=== PATIENT | female | born 1990 | race Two or more races ===

== ENCOUNTER 2022-01-18 10:44 | Emergency (ER) | payer SELFPAY ==
[~2022-01-18] VITALS: Ht 152.4 cm; Wt 60.0 kg
[2022-01-18 10:54] VITALS: BP 156/80
[2022-01-18] MEDS ORDERED: ACETAMINOPHEN 500 MG TAB PO ONE (11:15)
[2022-01-18] MEDS ORDERED: SODIUM CHLORIDE 0.9% 1,000 ML IV ONE (11:15)
[2022-01-18] MEDS ORDERED: AZIT250T9 PO (12:22)
[2022-01-18] MEDS ORDERED: METH4PAK PO (12:22)
[2022-01-18] MEDS ORDERED: ALBUAER3 IN (12:23)
[2022-01-18] MEDS ORDERED: DEXT1SYP9 PO (12:24)
[2022-01-18] MEDS ORDERED: DexAMETHasone 4 MG TAB PO ONE (12:30)
[2022-01-18] MEDS ORDERED: ALBUTEROL SULF 2.5 MG/0.5ML(0.5%) NEB SOLN NEB ONE (12:30)
[2022-01-18] MEDS ORDERED: BUDESONIDE (INHALATION) 0.5 MG/2 ML NEB NEB ONE (12:30)
[2022-01-18] MEDS ORDERED: LEVALBUTEROL HCL 1.25 MG/3 ML NEB NEB SCH (18:00)
== END 2022-01-18 15:10 | disposition home or self-care (01) ==
LOC: ER 10:44
DX: J45.909 Unspecified asthma, uncomplicated (principal); J20.9 Acute bronchitis, unspecified; E11.9 Type 2 diabetes mellitus without complications; Z20.822 Contact with and (suspected) exposure to COVID-19
CPT/HCPCS: 36415; 82962; 87426; 87804; 93005; 94640; 99284; J8540

== ENCOUNTER 2024-04-20 03:30 | Inpatient (IN) | payer OTHER ==
[~2024-04-20] VITALS: Ht 152.4 cm; Wt 67.6 kg
[~2024-04-20 03:30] MED LIST: ALBUAER3 IN; AZIT-43 PO; DEXT1SYP9 PO; METH4PAK PO
[2024-04-20 04:31] LABS: COVID19 ANTIGEN SOFIA FIA NEGATIVE (NEGATIVE); Rapid Influenza A Negative (Negative)
[2024-04-20 04:32] LABS: Rapid Influenza B Positive (Negative)
--- NOTE | 2024-04-20 04:36 | ED.PDOC ---
SOB-HPI HPI Comments This is a 35-year-old diabetic patient chief complaint flu-like symptoms x2 days. Patient complaining of fevers, vomiting, shortness of breath. Taking [id number] medications with little relief. Fingerstick in triage is 431. Diarrhea, chest pain, difficulty breathing, recent travel does note recent ill contacts. Chief Complaint: Flu like Time Seen by MD: 03:43 Primary Care Provider: UNKNOWN Reviewed notes: Nurses Notes, Medications, Allergies Information Source: Patient Mode of Arrival: Ambulatory Past Medical History PAST MEDICAL HISTORY: DM Surgical History: Denies all surgeries [employer]IC History: Denies all SHEET MET[employer] MECH[employer]IC Hx Family History Family History: Reviewed,noncontributory to illness Social History Smoker: Non-Smoker Alcohol: Denies ETOH Use Drugs: Denies Drug Use Lives In: Home Constitutional: reports: fever; denies: chills, diaphoresis, fatigue, malaise, sweats, weakness, others EENTM: reports: nasal discharge; denies: blurred vision, double vision, ear bleeding, ear discharge, ear drainage, ear pain, ear ringing, eye pain, eye red ness, hearing loss, mouth pain, mouth swelling, nose bleeding, nose congestion, nose pain, photophobia, tearing, throat pain, throat swelling, voice changes, others Respiratory: reports: cough, shortness of breath; denies: hemoptysis, orthopnea, SOB at rest, SOB with excertion, stridor, wheezing, others Cardiovascular: denies: chest pain, dizzy spells, diaphoresis, Dyspnea on exertion, edema, irregular heart beat, left arm pain, lightheadedness, palpitations, PND, syncope, others Gastrointestinal: reports: nausea, vomiting; denies: abdomen distended, abdominal pain, blood streaked bowels, constipated, diarrhea, dysphagia, difficulty swallowing, hematemesis, melena, poor appetite, poor fluid intake, rectal bleeding, rectal pain, others Genitourinary: denies: abnormal vagina bleeding, burning, dyspareunia, dysuria, flank pain, frequency, hematuria, incontinence, pain, , vagina discharge, urgency, others Neurological: denies: dizziness, fainting, headache, left sided numbness, left sided weakness, numbness, paresthesia, pre-existing deficit, right sided numbness, right sided weakness, seizure, speech problems, tingling, tremors, weakness, others Musculoskeletal: denies: back pain, gout, joint pain, joint swelling, muscle pain, muscle stiffness, neck pain, others Integumetry: denies: bruises, change in color, change in hair/nails, dryness, laceration, lesions, lumps, rash, wounds, others Allergic/Immunocompromised: denies: Difficulty Healing, Frequent Infections, Hives, Itching, others Hematologic/Lymphatic: denies: anemia, blood clots, easy bleeding, easy bruising, swollen glands, others Endocrine: denies: excessive hunger, excessive sweating, excessive thirst, excessive urination, flushing, intolerance to cold, intolerance to heat, unexplained weight gain, unexplained weight loss, others Psychiatric: denies: anxiety, bipolar disorder, depression, hopeless, panic disorder, schizophrenia, sleepless, suicidal, others Physical Exam General Appearance: No Apparent Distress, Normal HEENT: Pharyngeal Erythema, TMs Normal Neck: Full Range of Motion, Non-Tender Respiratory: Chest Non-Tender, Lungs Clear, No Accessory Muscle Use, No Respiratory Distress, Normal Breath Sounds Cardiovascular: No Edema, No JVD, No Murmur, No Gallop, Normal Peripheral Pulses, Regular Rate/Rhythm Breast Exam: Deferred Gastrointestinal: No Organomegaly, Non Tender, No Pulsatile Mass, Normal Bowel Sounds, Soft Genitalia: Deferred Pelvic: Deferred Rectal: Deferred Extremities: Normal capillary refill, Normal inspection, Normal range of motion, Non-tender, No pedal edema Musculoskeletal : Apperance: Normal Neurologic: Alert, wire preparation machine tender II-XII nml as Tested, No Motor Deficits, Normal Affect, Normal Mood, No Sensory Deficits Cerebellar Function: Normal Reflexes: Normal Skin: Dry, Normal Color, Warm Lymphatic: No Adenopathy Was a procedure done? Was a procedure done?: No Differential Dx Differential Diagnosis: Bronchitis, Pneumonia X-Ray, Labs, Meds, VS Vital Signs Date Time Temp Pulse Resp B/P (MAP) Pulse Ox O2 Delivery O2 Flow Rate FiO2 04/20/24 08:45 98.3 118 22 135/86 (102) 97 98.3 04/20/24 08:40 118 22 97 Room Air* 0 21 04/20/24 08:35 131 97 Room Air* 0 21 04/20/24 08:35 98.4 131 16 119/76 (90) 97 98.4 04/20/24 04:29 142 16 96 Room Air 04/20/24 04:29 97.7 142 16 141/102 (115) 96 97.7 04/20/24 03:44 97.7 42 16 141/102 (115) 96 Lab Test 04/20/24 10:00 04/20/24 09:39 04/20/24 08:41 04/20/24 08:10 Range/Units Urine Color Light-yellow Yellow Urine Clarity Clear Clear Urine pH 5.0 5.0-9.0 Urine Specific [place] 1.025 1.001-1.035 Urine Protein Trace H Negative Urine Ketones 4+ H Negative Urine Blood Negative Negative /uL Urine Nitrite Negative Negative Urine Bilirubin Negative Negative Urine Urobilinogen Normal Negative mg/dL Urine Leukocyte Esterase Negative Negative /uL Urine RBC 1 0 - 4 /hpf Urine Microscopic WBC 1 0-5 /HPF Urine Squamous Epithelial Cells Few <5 /hpf Urine Bacteria Few H None Seen /hpf Urine Hyaline Casts Mod 0 - 2 /lpf Urine Mucus Few None Seen Urine Yeast (Budding) Occasional None Seen /hpf Urine Glucose 4+ H Normal mg/dL Lactic Acid Level 1.6 0.4-2.0 mmol/L POC Glucose 277 H 70-106 mg/dl Blood Gas Specimen Type Venous Blood Gas Sample Site Vbg - n/a Blood Gas Patient Temperature 37.0 Arterial Blood Date Drawn Kang Test N/a Venous Blood pH 7.218 L 7.320-7.430 Venous Blood pCO2 at Patient Temp 26.4 L 38.0-54.0 mmHg Venous Blood pO2 at Patient Temp < 36.5 23.0-48.0 mmHg Venous Blood HCO3 10.5 L 22.0-29.0 mmol/L Venous Blood Base Excess -15.5 L -2.0-3.0 mmol/L Blood Gas Modality Room air FiO2 % 21.0 Test 04/20/24 07:51 04/20/24 05:55 04/20/24 04:59 04/20/24 03:57 Range/Units Sodium Level 132 L 129 L 136-145 mmol/L Potassium Level 4.2 5.5 H 3.5-5.1 mmol/L Chloride Level 106 99 98-107 mmol/L Carbon Dioxide Level 11 L 10 L 20-31 mmol/L Anion Gap 15 20 H 5-15 Blood Urea Nitrogen 13 15 9-23 mg/dL Creatinine 1.06 H 1.49 H 0.550-1.02 mg/dL Glomerular Filtration Rate Calc 69 46 >90 mL/min BUN/Creatinine Ratio 12.3 10.1 10.0-20.0 Serum Glucose 323 H 459 *H 74-106 mg/dL Serum Osmolality 299 H 278-298 mOsm/kg Calcium Level 8.6 L 9.7 8.7-10.4 mg/dL Beta-Hydroxybutyric Acid 3.465 H < 0.4 mmol/L POC Glucose 490 *H 510 *H 70-106 mg/dl White Blood Count 13.7 H 4.4-10.8 10^3/uL Red Blood Count 5.98 H 4.0-5.20 10^6/uL Hemoglobin 17.9 H 12.2-16.2 g/dL Hematocrit 55.5 H 36.0-46.0 % Mean Corpuscular Volume 92.8 80.0-100.0 fL Mean Corpuscular Hemoglobin 30.0 28.0-32.0 pg Mean Corpuscular Hemoglobin Concent 32.3 32.0-36.0 g/dL Red Cell Distribution Width 13.8 11.8-14.3 % Platelet Count 367 140-450 10^3/uL Mean Platelet Volume 9.1 6.9-10.8 fL Neutrophils (%) (Auto) 66.3 37.0-80.0 % Lymphocytes (%) (Auto) 25.7 10.0-50.0 % Monocytes (%) (Auto) 7.5 0.0-12.0 % Eosinophils (%) (Auto) 0.3 0.0-7.0 % Basophils (%) (Auto) 0.2 0.0-2.0 % Neutrophils # (Auto) 9.1 H 1.6-8.6 10 ^3/uL Lymphocytes # (Auto) 3.5 0.4-5.4 10 ^3/uL Monocytes # (Auto) 1.0 0-1.3 10 ^3/uL Eosinophils # (Auto) 0 0-0.8 10 ^3/uL Basophils # (Auto) 0 0-0.2 10 ^3/uL Nucleated Red Blood Cells 0.1 % Phosphorus Level 5.4 H 2.4-5.1 mg/dL Magnesium Level 2.4 1.6-2.6 mg/dL Total Bilirubin 0.2 0.2-1.0 mg/dL Aspartate Amino Transferase (AST) 53 H 13-40 U/L Alanine Aminotransferase (ALT) 36 7-40 U/L Alkaline Phosphatase 107 46-116 U/L Total Protein 8.7 H 5.7-8.2 g/dL Albumin 5.4 H 3.2-4.8 g/dL Test 04/20/24 03:52 Range/Units Influenza Type A Antigen Negative Negative Influenza Type B Antigen Positive Negative SARS-CoV-2 Antigen (Rapid) Negative NEGATIVE X-Ray, Labs, Meds, VS Comment Influenza swab POSITIVE B COVID-19 negative PENDING CBC AND CMP CONSIDER DKA TX: Patient's blood sugar fingerstick 510. Normal saline 1000 mL fluid bolus. Insulin 5 units subQ. 0537-FINGER GLUCOSE 490 AFTER 5 UNITS OF INSULIN SUBQ AND 1 L BOLUS. PATIENT GIVEN 5 MORE UNITS OF INSULIN R 2ND NORMAL SALINE BOLUS 1# NORMAL SALINE 1000 ML BOLUS #2 NORMAL SALINE 1000 ML BOLUS Time of 1ST Reevaluation: 07:45 Reevaluation 1ST: Improved Patient Education/Counseling: Diagnosis, Treatment, Prognosis, Need For Follow Up Family Education/Counseling: No Family Present Departure 1 Departure Time of Disposition: 07:45 (Patient presented in DKA. We will admit patient for insulin drip and further workup.) Impression: Primary Impression: DKA, type 2, not at goal Additional Impressions: Influenza B Diabetes type 2, uncontrolled Qualified Codes: E11.65 - Type 2 diabetes mellitus with hyperglycemia Disposition: ADMITTED INPATIENT Admit to: ICU Condition: Guarded e-Prescriptions Methylprednisolone (Medrol Dosepak) 4 Mg [place] 4 MG PO UD for 6 Days, #21 TAB UAD Prov: IWONA HACKETT MD 04/23/24 Azithromycin (Azithromycin) 250 Mg Tab 250 MG PO DAILY for 5 Days, #6 TAB Prov: IWONA HACKETT MD 04/23/24 Metformin Hydrochloride (Metformin Hcl) 500 Mg Tab 0.5 TAB PO BID for 10 Days, #10 TAB Take a half tab twice daily with meals Prov: HASMUKH VILLA 04/20/24 Oseltamivir Phosphate (Tamiflu) 75 Mg Cap 1 CAP PO BID for 5 Days, #10 CAP Prov: HASMUKH VILLA 04/20/24 Discharged With: Self Critical Care Note Critical Care Time?: Yes Critical care comment: DKA Authorized and Performed by: Robert Rodrigues MD Total critical care time: Approximately 34 minutes Due to a high probability of clinically significant, life threatening deterioration, the patient required my highest level of preparedness to intervene emergently and I personally spent this critical care time directly and personally managing the patient. This critical care time included obtaining a history; examining the patient; pulse oximetry; ordering and review of studies; arranging urgent treatment with development of a management plan; evaluation of patient's response to treatment; frequent reassessment; and, discussions with other providers. This critical care time was performed to assess and manage the high probability of imminent, life-threatening deterioration that could result in multi-organ failure. It was exclusive of separately billable procedures and treating other patients and teaching time. Please see my other sections and the rest of the note for further information on patient assessment and treatment. Stability Stability form required: No Heart Score Heart Score: Heart Score Response (Comments) Value History N/A 0 EKG N/A 0 Age N/A 0 Risk Factors N/A 0 Troponin N/A 0 Total 0 HASMUKH VILLAP Apr 20, 2024 04:36 ROBERT RODRIGUES MD Apr 20, 2024 07:46
[2024-04-20] MEDS: SODIUM CHLORIDE 0.9% 1,000 ML IV ONE ×2 (04:49→06:05)
[2024-04-20] MEDS: InsuLIN REG 1unit/0.01ml Soln (100units/ml) SC ONE ×2 (05:06→06:10)
[2024-04-20] MEDS ORDERED: OSEL75CA5 PO (05:31)
[2024-04-20] MEDS ORDERED: METF-370 PO (05:31)
[2024-04-20 06:11] LABS: Basophils # (auto) 0 10 ^3/uL (0-0.2); Basophils % (auto) 0.2 % (0.0-2.0); Eosinophils # (auto) 0 10 ^3/uL (0-0.8); Neutrophils # (auto) 9.1 10 ^3/uL (1.6-8.6); Nucleated Red Blood Cells % 0.1 %
[2024-04-20 06:14] LABS: Eosinophils % (auto) 0.3 % (0.0-7.0); Hematocrit 55.5 % (36.0-46.0); Hemoglobin 17.9 g/dL (12.2-16.2); Lymphocytes # (auto) 3.5 10 ^3/uL (0.4-5.4); Lymphocytes % (auto) 25.7 % (10.0-50.0); Mean Corpuscular Hgb Conc. 32.3 g/dL (32.0-36.0); Mean Corpuscular Volume 92.8 fL (80.0-100.0); Monocytes % (auto) 7.5 % (0.0-12.0); Neutrophils % (auto) 66.3 % (37.0-80.0); Platelet Count (auto) 367 10^3/uL (140-450); Red Blood Cells 5.98 10^6/uL (4.0-5.20); Red Cell Distribution Width 13.8 % (11.8-14.3); White Blood Cell 13.7 10^3/uL (4.4-10.8)
[2024-04-20 06:42] LABS: Alkaline Phosphatase 107 U/L (46-116); Anion Gap 20 (5-15); Calcium 9.7 mg/dL (8.7-10.4); Chloride 99 mmol/L (98-107)
[2024-04-20 06:46] LABS: BUN/Creatinine Ratio 10.1 (10.0-20.0)
[2024-04-20 06:50] LABS: Carbon Dioxide 10 mmol/L (20-31); Potassium 5.5 mmol/L (3.5-5.1); Sodium 129 mmol/L (136-145)
[2024-04-20 06:51] LABS: Alanine Aminotransferase 36 U/L (7-40); Albumin 5.4 g/dL (3.2-4.8); Aspartate Aminotransferase 53 U/L (13-40); Bilirubin, Total 0.2 mg/dL (0.2-1.0); Blood Urea Nitrogen 15 mg/dL (9-23); Glucose 459 mg/dL (74-106); Total Protein 8.7 g/dL (5.7-8.2)
[2024-04-20] MEDS ORDERED: DEXTROSE (50%) 50ML SYRG IV PRN ×2 (07:15→23:15)
[2024-04-20] MEDS: ACCU-CHEK COMFORT CURVE STRIP VI SCH ×2 (07:32→23:47)
[2024-04-20 07:40] LABS: Magnesium 2.4 mg/dL (1.6-2.6)
[2024-04-20] MEDS: SODIUM CHLORIDE 0.9% 1,000 ML IV SCH ×2 (07:40→11:38)
[2024-04-20 07:44] LABS: Phosphorus 5.4 mg/dL (2.4-5.1)
[2024-04-20] MEDS: INSULIN LANTUS (GLARGINE) 1 /0.01ml (100units/ml) SC ONE (07:48)
[2024-04-20 08:33] LABS: Chloride 106 mmol/L (98-107); Potassium 4.2 mmol/L (3.5-5.1)
[2024-04-20 08:34] LABS: Anion Gap 15 (5-15)
[2024-04-20 08:35] VITALS: PULSE 131; O2SAT 97
[2024-04-20 08:40] VITALS: PULSE 118; RESP 22; O2SAT 97
[2024-04-20 08:40] LABS: BUN/Creatinine Ratio 12.3 (10.0-20.0); Blood Urea Nitrogen 13 mg/dL (9-23); Calcium 8.6 mg/dL (8.7-10.4); Carbon Dioxide 11 mmol/L (20-31); Glucose 323 mg/dL (74-106); Sodium 132 mmol/L (136-145)
[2024-04-20] MEDS: INSULIN DRIP 100 UNIT/100ML 100 ML IV SCH (08:46)
--- NOTE | 2024-04-20 09:00 | DVH ---
CHEST RADIOGRAPH Indication: cough Technique: Single frontal view of the chest was obtained Comparison: None FINDINGS: Lines and Tubes: None Lungs: No focal consolidation. Pleura: No effusion. No pneumothorax. Cardiomediastinal contours: Unremarkable Bones: No acute osseous abnormality. IMPRESSION: No acute cardiopulmonary disease.
[2024-04-20] MEDS ORDERED: MORPHINE SULFATE INJ 2 MG/ml SYRG IV PRN (10:15)
[2024-04-20] MEDS ORDERED: ACETAMINOPHEN 325 MG TAB PO PRN (10:15)
[2024-04-20] MEDS ORDERED: HYDROcodone-ACET 5/325MG TAB PO PRN (10:15)
[2024-04-20] MEDS ORDERED: NITROGLYCERIN 0.4 MG SL TAB SL PRN (10:15)
[2024-04-20] MEDS ORDERED: DOCUSATE SOD 100 MG CAP PO PRN (10:15)
[2024-04-20 10:35] LABS: Urine Bacteria FEW /hpf (None Seen); Urine Blood Negative /uL (Negative); Urine Budding Yeast OCCASIONAL /hpf (None Seen); Urine Clarity Clear (Clear); Urine Color Light-Yellow (Yellow); Urine Hyaline Cast MOD /lpf (0 - 2); Urine Mucus FEW (None Seen); Urine Protein, UAD TRACE (Negative); Urine Specific Gravity 1.025 (1.001-1.035); Urine Squamous Epithelial Cell FEW /hpf (<5); Urine Urobilinogen Normal (Negative); Urine WBC 1 /HPF (0-5)
--- NOTE | 2024-04-20 10:46 | DVHHP2 ---
History of Present Illness Reason for Visit: Flu like symptoms History of Present Illness Telma Blum is a 35-year-old female with past medical history of diabetes controlled by diet and exercise, who came into the hospital for flu like symptoms since last Saturday. Patient states she started feeling bad on Saturday, had a productive cough and was sent home from work. States she continued to decline and get worse over the next few days, becoming weaker and unable to eat any food. She came into the hospital due to increasing shortness of breath and weakness. Patient states she has not been able to eat since last Saturday. She says her blood sugars are usually less than 100 in the morning and that she did not know her sugars would increase due to illness and stress. Endocrine: Diabetes Past Surgical History: None Family History: None Smoke: No ALCOHOL: none Drugs: None Lives: with Family Domestic Violence: Neg Review of Systems Constitutional: Yes: Fever, Chills, Sweats, Malaise; No: Weakness, Other Eyes: No: Pain, Vision change, Conjunctivae inflammation, Eyelid inflammation, Other, Redness ENT: No: Ear pain, Ear discharge, Nose pain, Nose discharge, Nose congestion, Mouth pain, Mouth swelling, Throat pain, Throat swelling, Other Respiratory: Cough, Shortness of breath, SOB with excertion, Sputum; No: Dry, Wheezing, Hemoptysis, Pleuritic Pain, Wheezing, Other Cardiovascular: No: Chest Pain, Palpitations, Orthopnea, Paroxysmal Noc. Dyspnea, Edema, Lt Headedness, Other Gastrointestinal: No: Nausea, Vomiting, Abdominal Pain, Diarrhea, Constipation, Melena, Hematochezia, Other Genitourinary: No Dysuria, No Frequency, No Incontinence, No Hematuria, No Retention, No Other Musculoskeletal: No: other, neck pain, shoulder pain, arm pain, back pain, hand pain, leg pain, foot pain Skin: No: Rash, Lesions, Jaundice, Bruising, Other Neurological: No: Weakness, Numbness, Incoordination, Change in speech, Confusion, Seizures, Other Allergies: Coded Allergies: NO KNOWN ALLERGIES (Unverified , 01/18/22) Medications Current Medications Medications Dose Ordered Sig/Demar Route Start Time Stop Time Status Last Admin Dose Admin Sodium Chloride 1,000 ml @ 500 mls/hr Q2H IV 04/20/24 07:15 04/20/24 11:14 04/20/24 09:08 500 MLS/HR Sodium Chloride 1,000 ml @ 250 mls/hr Q4H IV 04/20/24 11:15 04/20/24 13:14 Sodium Chloride 1,000 ml @ 150 mls/hr Q6H40M IV 04/20/24 13:15 Insulin Human (Reg)/Sodium Chloride 100 ml @ 0.5 mls/hr Q24H IV 04/20/24 07:15 04/20/24 08:46 3 MLS/HR Dextrose 50 ml UD PRN IV 04/20/24 07:15 Diagnostic Test (Pha) 1 strip Q90MIN 04/20/24 07:30 04/20/24 10:30 1 STRIP Insulin Glargine 15 units DAILY SC 04/21/24 10:00 Acetaminophen/ Hydrocodone Bitart 1 tab Q4HP PRN PO 04/20/24 10:15 Ondansetron HCl 4 mg Q4HP PRN IV 04/20/24 10:15 Docusate Sodium 100 mg BIDPRN PRN PO 04/20/24 10:15 Acetaminophen 650 mg Q6HP PRN PO 04/20/24 10:15 Nitroglycerin 0.4 mg Q5MINP PRN SL 04/20/24 10:15 Morphine Sulfate 2 mg Q30M PRN IV 04/20/24 10:15 Exam Vital Signs Vital Signs Date Time Temp Pulse Resp B/P (MAP) Pulse Ox O2 Delivery O2 Flow Rate FiO2 04/20/24 08:45 98.3 118 22 135/86 (102) 97 98.3 04/20/24 08:40 Room Air* 0 21 General Appearance: Alert, Oriented X3, moderate distress HEENT: Atraumatic, PERRLA Respiratory: Other (dimished breath sounds) Cardiovascular: Normal S1, Normal S2, Other (tachycardia) Abdominal: Normal bowel sounds, No tenderness Extremities: No clubbing, No cyanosis, No edema, Normal pulses Skin: No rashes, No breakdown, No significant lesion Neuro: Normal gait, Normal speech, Strength at 5/5 X4 ext Psych/Mental Status: Mental status NL, Mood NL Labs/Xrays Labs Test 04/20/24 10:27 04/20/24 10:00 04/20/24 09:39 04/20/24 08:10 Range/Units Urine Color Light-yellow Yellow Urine Clarity Clear Clear Urine pH 5.0 5.0-9.0 Urine Specific [place] 1.025 1.001-1.035 Urine Protein Trace H Negative Urine Ketones 4+ H Negative Urine Blood Negative Negative /uL Urine Nitrite Negative Negative Urine Bilirubin Negative Negative Urine Urobilinogen Normal Negative mg/dL Urine Leukocyte Esterase Negative Negative /uL Urine RBC 1 0 - 4 /hpf Urine Microscopic WBC 1 0-5 /HPF Urine Squamous Epithelial Cells Few <5 /hpf Urine Bacteria Few H None Seen /hpf Urine Hyaline Casts Mod 0 - 2 /lpf Urine Mucus Few None Seen Urine Yeast (Budding) Occasional None Seen /hpf Urine Glucose 4+ H Normal mg/dL Lactic Acid Level 1.6 0.4-2.0 mmol/L Blood Gas Specimen Type Venous Blood Gas Sample Site Vbg - n/a Blood Gas Patient Temperature 37.0 Arterial Blood Date Drawn [id number] Kang Test N/a Venous Blood pH 7.218 L 7.320-7.430 Venous Blood pCO2 at Patient Temp 26.4 L 38.0-54.0 mmHg Venous Blood pO2 at Patient Temp < 36.5 23.0-48.0 mmHg Venous Blood HCO3 10.5 L 22.0-29.0 mmol/L Venous Blood Base Excess -15.5 L -2.0-3.0 mmol/L Blood Gas Modality Room air FiO2 % 21.0 Test 04/20/24 07:51 04/20/24 03:57 04/20/24 03:52 Range/Units Sodium Level 132 L 136-145 mmol/L Potassium Level 4.2 3.5-5.1 mmol/L Chloride Level 106 98-107 mmol/L Carbon Dioxide Level 11 L 20-31 mmol/L Anion Gap 15 5-15 Blood Urea Nitrogen 13 9-23 mg/dL Creatinine 1.06 H 0.550-1.02 mg/dL Glomerular Filtration Rate Calc 69 >90 mL/min BUN/Creatinine Ratio 12.3 10.0-20.0 Serum Glucose 323 H 74-106 mg/dL Serum Osmolality 299 H 278-298 mOsm/kg Calcium Level 8.6 L 8.7-10.4 mg/dL White Blood Count 13.7 H 4.4-10.8 10^3/uL Red Blood Count 5.98 H 4.0-5.20 10^6/uL Hemoglobin 17.9 H 12.2-16.2 g/dL Hematocrit 55.5 H 36.0-46.0 % Mean Corpuscular Volume 92.8 80.0-100.0 fL Mean Corpuscular Hemoglobin 30.0 28.0-32.0 pg Mean Corpuscular Hemoglobin Concent 32.3 32.0-36.0 g/dL Red Cell Distribution Width 13.8 11.8-14.3 % Platelet Count 367 140-450 10^3/uL Mean Platelet Volume 9.1 6.9-10.8 fL Neutrophils (%) (Auto) 66.3 37.0-80.0 % Lymphocytes (%) (Auto) 25.7 10.0-50.0 % Monocytes (%) (Auto) 7.5 0.0-12.0 % Eosinophils (%) (Auto) 0.3 0.0-7.0 % Basophils (%) (Auto) 0.2 0.0-2.0 % Neutrophils # (Auto) 9.1 H 1.6-8.6 10 ^3/uL Lymphocytes # (Auto) 3.5 0.4-5.4 10 ^3/uL Monocytes # (Auto) 1.0 0-1.3 10 ^3/uL Eosinophils # (Auto) 0 0-0.8 10 ^3/uL Basophils # (Auto) 0 0-0.2 10 ^3/uL Nucleated Red Blood Cells 0.1 % Phosphorus Level 5.4 H 2.4-5.1 mg/dL Magnesium Level 2.4 1.6-2.6 mg/dL Total Bilirubin 0.2 0.2-1.0 mg/dL Aspartate Amino Transferase (AST) 53 H 13-40 U/L Alanine Aminotransferase (ALT) 36 7-40 U/L Alkaline Phosphatase 107 46-116 U/L Total Protein 8.7 H 5.7-8.2 g/dL Albumin 5.4 H 3.2-4.8 g/dL Influenza Type A Antigen Negative Negative Influenza Type B Antigen Positive Negative SARS-CoV-2 Antigen (Rapid) Negative NEGATIVE CHEST RADIOGRAPH FINDINGS: Lines and Tubes: None Lungs: No focal consolidation. Pleura: No effusion. No pneumothorax. Cardiomediastinal contours: Unremarkable Bones: No acute osseous abnormality. IMPRESSION: No acute cardiopulmonary disease. Assessment/Plan Assessment/Plan Assessment: Diabetic Keto Acidosis, Influenza B positive, Plan: Admit to ICU, Insulin drip, IV hydration, NPO, Start long acting insulin, A1c, Manage/Monitor electrolytes closely, BMP Q 6 hours until off insulin drip, Plan discussed with: Patient My Orders Orders - CRISTOPHER CASTAÑEDA Procedure Category Date Status Time Beta-Hydroxybutyrate LAB 04/20/24 In Process 09:06 Admit ADMIT 04/20/24 Transmitted 10:09 Code Status CODE 04/20/24 Transmitted 10:09 Hydrocodone-Acet PHA 04/20/24 In Process 5/325mg Tab ([place] 10:15 Ondansetron Hcl PHA 04/20/24 In Process (Zofran) 10:15 Docusate Sodium PHA 04/20/24 In Process Capsule (Colace 10:15 Complete Blood Count LAB 04/21/24 Verified 04:00 Comprehensive LAB 04/21/24 Verified Metabolic Panel 04:00 Npo (Nothing By DIET 04/20/24 Transmitted Mouth) Diet Lunch Condition: Critical OPAL 04/20/24 In Process 10:09 Acetaminophen Tablet PHA 04/20/24 In Process (Tylenol Tablet) 10:15 Nitroglycerin PHA 04/20/24 In Process Sublingual (Ntrostat 10:15 Morphine Sulfate PHA 04/20/24 In Process Injection 10:15 Stat Ekg For Chest OPAL 04/20/24 In Process Pain 10:09 Notify Md Of Changes OPAL 04/20/24 In Process From Base 10:09 Room Manager For OPAL 04/20/24 In Process 24 Hours 10:09 Emergency Dysrhythmia OPAL 04/20/24 In Process Protocol 10:09 Rhythm Strips Once OPAL 04/20/24 In Process Every Shift 10:09 Oxygen By Nasal RT 04/20/24 Transmitted Cannula 10:09 Date of Service: Apr 20, 2024 Billing Provider: CRISTOPHER CASTAÑEDA Common Visit Codes: [id number] INP/OBS CARE (MOD) CRISTOPHER CASTAÑEDA Apr 20, 2024 10:46
[2024-04-20] MEDS: D5W/SOD CHL 0.45% 1,000 ML IV SCH (12:17)
[2024-04-20] MEDS ORDERED: SODIUM CHLORIDE 0.9% 1,000 ML IV SCH (13:15)
[2024-04-20 13:54] LABS: Potassium 3.8 mmol/L (3.5-5.1); Sodium 138 mmol/L (136-145)
[2024-04-20 13:55] LABS: Anion Gap 10 (5-15)
[2024-04-20 14:00] LABS: BUN/Creatinine Ratio 12.2 (10.0-20.0); Blood Urea Nitrogen 9 mg/dL (9-23)
[2024-04-20 14:04] LABS: Carbon Dioxide 15 mmol/L (20-31); Chloride 113 mmol/L (98-107); Glucose 127 mg/dL (74-106)
[2024-04-20] MEDS: POTASSIUM CHL 20 Meq TABLET PO ONE (14:59)
[2024-04-20 19:25] LABS: Anion Gap 8 (5-15); Potassium 3.6 mmol/L (3.5-5.1); Sodium 138 mmol/L (136-145)
[2024-04-20 19:31] LABS: BUN/Creatinine Ratio 10.7 (10.0-20.0)
[2024-04-20 19:33] LABS: Blood Urea Nitrogen 8 mg/dL (9-23); Calcium 7.9 mg/dL (8.7-10.4); Carbon Dioxide 17 mmol/L (20-31); Chloride 113 mmol/L (98-107); Glucose 169 mg/dL (74-106)
[2024-04-20 19:40] VITALS: PULSE 117; RESP 19; O2SAT 95
[2024-04-20 23:40] VITALS: PULSE 108; RESP 15; O2SAT 95
[2024-04-20] MEDS: InsuLIN REG 1unit/0.01ml Soln (100units/ml) SC SCH (23:53)
[2024-04-21 05:55] LABS: Alanine Aminotransferase 19 U/L (7-40); Alkaline Phosphatase 67 U/L (46-116); Anion Gap 14 (5-15); Aspartate Aminotransferase 20 U/L (13-40); BUN/Creatinine Ratio 8.1 (10.0-20.0); Sodium 140 mmol/L (136-145)
[2024-04-21 05:56] LABS: Total Protein 5.9 g/dL (5.7-8.2)
[2024-04-21 05:59] LABS: Albumin 3.5 g/dL (3.2-4.8)
[2024-04-21 06:02] LABS: Basophils # (auto) 0 10 ^3/uL (0-0.2); Basophils % (auto) 0.3 % (0.0-2.0); Eosinophils # (auto) 0 10 ^3/uL (0-0.8); Eosinophils % (auto) 0.1 % (0.0-7.0); Hematocrit 42.6 % (36.0-46.0); Hemoglobin 14.3 g/dL (12.2-16.2); Lymphocytes # (auto) 2.4 10 ^3/uL (0.4-5.4); Lymphocytes % (auto) 34.5 % (10.0-50.0); Mean Corpuscular Hemoglobin 29.7 pg (28.0-32.0); Mean Corpuscular Hgb Conc. 33.6 g/dL (32.0-36.0); Mean Corpuscular Volume 88.6 fL (80.0-100.0); Monocytes # (auto) 0.8 10 ^3/uL (0-1.3); Monocytes % (auto) 11.7 % (0.0-12.0); Neutrophils # (auto) 3.8 10 ^3/uL (1.6-8.6); Neutrophils % (auto) 53.4 % (37.0-80.0); Nucleated Red Blood Cells % 0.1 %; Platelet Count (auto) 199 10^3/uL (140-450); Red Cell Distribution Width 13.2 % (11.8-14.3)
[2024-04-21 06:24] LABS: Bilirubin, Total 0.3 mg/dL (0.2-1.0); Blood Urea Nitrogen 5 mg/dL (9-23); Calcium 8.4 mg/dL (8.7-10.4); Carbon Dioxide 17 mmol/L (20-31); Chloride 109 mmol/L (98-107); Glucose 145 mg/dL (74-106); Potassium 2.8 mmol/L (3.5-5.1)
[2024-04-21 07:30] VITALS: PULSE 114; RESP 17; O2SAT 93
[2024-04-21] MEDS: POTASSIUM EFFERVESENT TAB 25 MEQ PO ONE ×2 (07:54→09:44)
[2024-04-21] MEDS: ONDANSETRON HCL 4 MG/2 ML VIAL IV PRN (09:13)
[2024-04-21] MEDS: INSULIN LANTUS (GLARGINE) 1 /0.01ml (100units/ml) SC SCH (09:49)
--- NOTE | 2024-04-21 12:02 | DVHPN2 ---
Subjective The patient seen and examined at bedside. The patient said she still very tired. But feel little bit better than when she 1st come in. Still on insulin drip. Reviewed: Care Plan, H&P, Labs, Medications, Previous Orders Changes from previous H/P or p: No Changes Eyes: No Pain, No Vision change, No Conjunctivae inflammation, No Eyelid inflammation, No Other, No Redness ENT: No Ear pain, No Ear discharge, No Nose pain, No Nose discharge, No Nose congestion, No Mouth pain, No Mouth swelling, No Throat pain, No Throat swelling, No Other Cardiovascular: No Chest Pain, No Palpitations, No Orthopnea, No Paroxysmal Noc. Dyspnea, No Edema, No Lt Headedness, No Other Respiratory: Cough; No Dry; Shortness of breath, SOB with excertion; No Wheezing, No Hemoptysis, No Pleuritic Pain; Sputum; No Other Gastrointestinal: No Nausea, No Vomiting, No Abdominal Pain, No Diarrhea, No Constipation, No Melena, No Hematochezia, No Other Genitourinary: No Dysuria, No Frequency, No Incontinence, No Hematuria, No Retention, No Other Musculoskeletal: No other, No neck pain, No shoulder pain, No arm pain, No back pain, No hand pain, No leg pain, No foot pain Skin: No Rash, No Lesions, No Jaundice, No Bruising, No Other Objective Vitals Vital Signs Date Time Temp Pulse Resp B/P (MAP) Pulse Ox O2 Delivery O2 Flow Rate FiO2 04/21/24 08:00 118 04/21/24 07:30 98.9 17 104/50 (68) 93 98.9 04/21/24 07:30 Room Air* 0 21 Intake/Output Intake and Output 04/21/24 07:00 Intake Total 3871.5 ml Balance 3871.5 ml Intake IV Total 3871.5 ml General Appearance: Alert, Oriented X3, Cooperative, No acute distress HEENT: Atraumatic, PERRLA, EOMI, Mucous membr. moist/pink Neck: Supple Lungs: Clear to auscultation, Normal air movement Cardiovascular: Regular rate, Normal S1, Normal S2, No murmurs, Gallops Abdomen: Normal bowel sounds, Soft, No tenderness Neuro: Cranial nerves 3-12 NL Psych/Mental Status: Mental status NL Medications Current Medications Medications Dose Ordered Sig/Demar Route Start Time Stop Time Status Last Admin Dose Admin Insulin Glargine 15 units DAILY SC 04/21/24 10:00 04/21/24 09:49 15 UNITS Acetaminophen/ Hydrocodone Bitart 1 tab Q4HP PRN PO 04/20/24 10:15 Ondansetron HCl 4 mg Q4HP PRN IV 04/20/24 10:15 04/21/24 09:13 4 MG Docusate Sodium 100 mg BIDPRN PRN PO 04/20/24 10:15 Acetaminophen 650 mg Q6HP PRN PO 04/20/24 10:15 Nitroglycerin 0.4 mg Q5MINP PRN SL 04/20/24 10:15 Morphine Sulfate 2 mg Q30M PRN IV 04/20/24 10:15 Diagnostic Test (Pha) 1 strip IQ4HR 04/21/24 00:00 04/21/24 08:12 1 STRIP Insulin Human Regular IQ4HR SC 04/21/24 00:00 04/21/24 08:07 2 UNITS Dextrose 50 ml UD PRN IV 04/20/24 23:15 Laboratory Results Laboratory Tests 04/21/24 05:24 Chemistry Test 04/20/24 13:08 04/20/24 18:50 04/21/24 05:24 04/21/24 11:56 Calcium Level 8.0 mg/dL (8.7-10.4) L 7.9 mg/dL (8.7-10.4) L 8.4 mg/dL (8.7-10.4) L Albumin 3.5 g/dL (3.2-4.8) Total Protein 5.9 g/dL (5.7-8.2) Magnesium Level Pending LFT Test 04/21/24 05:24 Alanine Aminotransferase (ALT) 19 U/L (7-40) Alkaline Phosphatase 67 U/L (46-116) Aspartate Amino Transferase (AST) 20 U/L (13-40) Total Bilirubin 0.3 mg/dL (0.2-1.0) HgA1c, TSH Test 04/21/24 05:24 Hemoglobin A1c 12.5 % A1C (<5.7) H Urinalysis Test 04/20/24 10:00 Urine Color Light-yellow (Yellow) Urine Clarity Clear (Clear) Urine pH 5.0 (5.0-9.0) Urine Specific [place] 1.025 (1.001-1.035) Urine Protein Trace (Negative) H Urine Ketones 4+ (Negative) H Urine Blood Negative /uL (Negative) Urine Nitrite Negative (Negative) Urine Bilirubin Negative (Negative) Urine Urobilinogen Normal mg/dL (Negative) Urine Leukocyte Esterase Negative /uL (Negative) Urine RBC 1 /hpf (0 - 4) Urine Microscopic WBC 1 /HPF (0-5) Urine Squamous Epithelial Cells Few /hpf (<5) Urine Bacteria Few /hpf (None Seen) H Urine Hyaline Casts Mod /lpf (0 - 2) Urine Mucus Few (None Seen) Urine Yeast (Budding) Occasional /hpf (None Urine Glucose 4+ mg/dL (Normal) H Labs and/or images reviewed: Labs reviewed by me Assessment/Plan Assessment/Plan Diabetic Keto Acidosis, Influenza B positive, Continuing management. Continue with antibiotic. Continuing with Tamiflu. Patient wean off insulin drip Will down grade Lantus 15 u bid SSI Low carb diet. This medical document was created using an electronic medical record system with [employer] direct computerized dictation system. Although this document has been carefully reviewed, there may still be some phonetic and typographical errors. These areas are purely typographical due to imperfections of the software programs, and do not reflect any compromise in the patient's medical care. Plan discussed with: Patient Date of Service: Apr 21, 2024 Billing Provider: IWONA HACKETT MD Common Visit Codes: [id number] INP/OBS CARE(HIGH) IWONA HACKETT MD Apr 21, 2024 12:02
[2024-04-21 12:49] LABS: Potassium 3.7 mmol/L (3.5-5.1)
[2024-04-21 12:55] LABS: Magnesium 1.8 mg/dL (1.6-2.6)
[2024-04-21 13:39] VITALS: BP 114/85; PULSE 118; RESP 16; TEMP 99.4; O2SAT 95
[2024-04-21 17:00] VITALS: BP 104/61; PULSE 106; RESP 16; TEMP 100; O2SAT 97
[2024-04-21 20:00] VITALS: RESP 16
[2024-04-21 21:00] VITALS: BP 118/71; PULSE 110; RESP 17; TEMP 98.2; O2SAT 94
[2024-04-22] VITALS (8 sets, daily range): BP systolic 104–131; BP diastolic 62–78; PULSE 97–111; RESP 15–19; TEMP 98–99; O2SAT 94–98
--- NOTE | 2024-04-22 11:47 | DVHPN2 ---
Subjective The patient seen and examined at bedside. The patient feels better. Reviewed: Care Plan, H&P, Labs, Medications, Previous Orders Changes from previous H/P or p: No Changes Eyes: No Pain, No Vision change, No Conjunctivae inflammation, No Eyelid inflammation, No Other, No Redness ENT: No Ear pain, No Ear discharge, No Nose pain, No Nose discharge, No Nose congestion, No Mouth pain, No Mouth swelling, No Throat pain, No Throat swelling, No Other Cardiovascular: No Chest Pain, No Palpitations, No Orthopnea, No Paroxysmal Noc. Dyspnea, No Edema, No Lt Headedness, No Other Respiratory: Cough; No Dry; Shortness of breath, SOB with excertion; No Wheezing, No Hemoptysis, No Pleuritic Pain; Sputum; No Other Gastrointestinal: No Nausea, No Vomiting, No Abdominal Pain, No Diarrhea, No Constipation, No Melena, No Hematochezia, No Other Genitourinary: No Dysuria, No Frequency, No Incontinence, No Hematuria, No Retention, No Other Musculoskeletal: No other, No neck pain, No shoulder pain, No arm pain, No back pain, No hand pain, No leg pain, No foot pain Skin: No Rash, No Lesions, No Jaundice, No Bruising, No Other Objective Vitals Vital Signs Date Time Temp Pulse Resp B/P (MAP) Pulse Ox O2 Delivery O2 Flow Rate FiO2 04/22/24 09:00 98.7 107 15 104/71 (82) 94 98.7 04/22/24 08:00 Room Air* 0 21 Intake/Output Intake and Output 04/22/24 07:00 Intake Total 925 ml Output Total 6 ml Balance 919 ml Intake Oral 925 ml Output Urine Total 6 ml General Appearance: Alert, Oriented X3, Cooperative, No acute distress HEENT: Atraumatic, PERRLA, EOMI, Mucous membr. moist/pink Neck: Supple Lungs: Clear to auscultation, Normal air movement Cardiovascular: Regular rate, Normal S1, Normal S2, No murmurs, Gallops Abdomen: Normal bowel sounds, Soft, No tenderness Neuro: Cranial nerves 3-12 NL Psych/Mental Status: Mental status NL Medications Current Medications Medications Dose Ordered Sig/Demar Route Start Time Stop Time Status Last Admin Dose Admin Insulin Glargine 15 units DAILY SC 04/21/24 10:00 04/22/24 10:14 15 UNITS Acetaminophen/ Hydrocodone Bitart 1 tab Q4HP PRN PO 04/20/24 10:15 Ondansetron HCl 4 mg Q4HP PRN IV 04/20/24 10:15 04/21/24 09:13 4 MG Docusate Sodium 100 mg BIDPRN PRN PO 04/20/24 10:15 Acetaminophen 650 mg Q6HP PRN PO 04/20/24 10:15 Nitroglycerin 0.4 mg Q5MINP PRN SL 04/20/24 10:15 Morphine Sulfate 2 mg Q30M PRN IV 04/20/24 10:15 Diagnostic Test (Pha) 1 strip IQ4HR 04/21/24 00:00 04/22/24 08:00 1 STRIP Insulin Human Regular IQ4HR SC 04/21/24 00:00 04/22/24 08:56 4 UNITS Dextrose 50 ml UD PRN IV 04/20/24 23:15 Laboratory Results Laboratory Tests 04/21/24 05:24 04/21/24 11:56 Chemistry Test 04/21/24 11:56 Magnesium Level 1.8 mg/dL (1.6-2.6) Urinalysis Test 04/20/24 10:00 Urine Color Light-yellow (Yellow) Urine Clarity Clear (Clear) Urine pH 5.0 (5.0-9.0) Urine Specific [place] 1.025 (1.001-1.035) Urine Protein Trace (Negative) H Urine Ketones 4+ (Negative) H Urine Blood Negative /uL (Negative) Urine Nitrite Negative (Negative) Urine Bilirubin Negative (Negative) Urine Urobilinogen Normal mg/dL (Negative) Urine Leukocyte Esterase Negative /uL (Negative) Urine RBC 1 /hpf (0 - 4) Urine Microscopic WBC 1 /HPF (0-5) Urine Squamous Epithelial Cells Few /hpf (<5) Urine Bacteria Few /hpf (None Seen) H Urine Hyaline Casts Mod /lpf (0 - 2) Urine Mucus Few (None Seen) Urine Yeast (Budding) Occasional /hpf (None Urine Glucose 4+ mg/dL (Normal) H Labs and/or images reviewed: Labs reviewed by me Assessment/Plan Assessment/Plan Diabetic Keto Acidosis, Influenza B positive, Continuing management. Continue with antibiotic. Continuing with Tamiflu. Patient wean off insulin drip Will down grade Lantus 15 u bid SSI Low carb diet. Discharge planning. This medical document was created using an electronic medical record system with [employer] direct computerized dictation system. Although this document has been carefully reviewed, there may still be some phonetic and typographical errors. These areas are purely typographical due to imperfections of the software programs, and do not reflect any compromise in the patient's medical care. Plan discussed with: Patient Date of Service: Apr 22, 2024 Billing Provider: IWONA HACKETT MD Common Visit Codes: [id number] INP/OBS CARE(HIGH) IWONA HACKETT MD Apr 22, 2024 11:47
[2024-04-22] MEDS: OSELTAMIVIR 75 MG CAP PO ONE (19:45)
[2024-04-23 01:00] VITALS: BP 106/58; PULSE 89; RESP 17; TEMP 98; O2SAT 99
[2024-04-23 05:00] VITALS: BP 126/43; PULSE 90; RESP 18; TEMP 98.1; O2SAT 97
[2024-04-23 08:10] VITALS: BP 112/68; PULSE 89; RESP 18; TEMP 98.8; O2SAT 94
[2024-04-23] MEDS: OSELTAMIVIR 75 MG CAP PO SCH (09:10)
[2024-04-23] MEDS ORDERED: AZIT-43 PO (11:21)
[2024-04-23] MEDS ORDERED: METH4PAK PO (11:21)
--- NOTE | 2024-04-23 11:32 | DVHDS2 ---
Discharge Summary Date of Admission Apr 20, 2024 at 10:09 Date of Discharge: Apr 23, 2024 Admitting Diagnosis Diabetic Keto Acidosis, Influenza B positive, Labs/Diagnostic Data: Laboratory Results Test 04/23/24 09:09 04/21/24 11:56 04/21/24 05:24 04/20/24 10:00 POC Glucose 187 mg/dl (70-106) Potassium Level 3.7 mmol/L (3.5-5.1) Magnesium Level 1.8 mg/dL (1.6-2.6) White Blood Count 7.0 10^3/uL (4.4-10.8) Red Blood Count 4.80 10^6/uL (4.0-5.20) Hemoglobin 14.3 g/dL (12.2-16.2) Hematocrit 42.6 % (36.0-46.0) Mean Corpuscular Volume 88.6 fL (80.0-100.0) Mean Corpuscular Hemoglobin 29.7 pg (28.0-32.0) Mean Corpuscular Hemoglobin Concent 33.6 g/dL (32.0-36.0) Red Cell Distribution Width 13.2 % (11.8-14.3) Platelet Count 199 10^3/uL (140-450) Mean Platelet Volume 8.2 fL (6.9-10.8) Neutrophils (%) (Auto) 53.4 % (37.0-80.0) Lymphocytes (%) (Auto) 34.5 % (10.0-50.0) Monocytes (%) (Auto) 11.7 % (0.0-12.0) Eosinophils (%) (Auto) 0.1 % (0.0-7.0) Basophils (%) (Auto) 0.3 % (0.0-2.0) Neutrophils # (Auto) 3.8 10 ^3/uL (1.6-8.6) Lymphocytes # (Auto) 2.4 10 ^3/uL (0.4-5.4) Monocytes # (Auto) 0.8 10 ^3/uL (0-1.3) Eosinophils # (Auto) 0 10 ^3/uL (0-0.8) Basophils # (Auto) 0 10 ^3/uL (0-0.2) Nucleated Red Blood Cells 0.1 % Sodium Level 140 mmol/L (136-145) Chloride Level 109 mmol/L (98-107) Carbon Dioxide Level 17 mmol/L (20-31) Anion Gap 14 (5-15) Blood Urea Nitrogen 5 mg/dL (9-23) Creatinine 0.62 mg/dL (0.550-1.02) Glomerular Filtration Rate Calc 118 mL/min (>90) BUN/Creatinine Ratio 8.1 (10.0-20.0) Serum Glucose 145 mg/dL (74-106) Hemoglobin A1c 12.5 % A1C (<5.7) Calcium Level 8.4 mg/dL (8.7-10.4) Total Bilirubin 0.3 mg/dL (0.2-1.0) Aspartate Amino Transferase (AST) 20 U/L (13-40) Alanine Aminotransferase (ALT) 19 U/L (7-40) Alkaline Phosphatase 67 U/L (46-116) Total Protein 5.9 g/dL (5.7-8.2) Albumin 3.5 g/dL (3.2-4.8) Urine Color Light-yellow (Yellow) Urine Clarity Clear (Clear) Urine pH 5.0 (5.0-9.0) Urine Specific [place] 1.025 (1.001-1.035) Urine Protein Trace (Negative) Urine Ketones 4+ (Negative) Urine Blood Negative /uL (Negative) Urine Nitrite Negative (Negative) Urine Bilirubin Negative (Negative) Urine Urobilinogen Normal mg/dL (Negative) Urine Leukocyte Esterase Negative /uL (Negative) Urine RBC 1 /hpf (0 - 4) Urine Microscopic WBC 1 /HPF (0-5) Urine Squamous Epithelial Cells Few /hpf (<5) Urine Bacteria Few /hpf (None Seen) Urine Hyaline Casts Mod /lpf (0 - 2) Urine Mucus Few (None Seen) Urine Yeast (Budding) Occasional /hpf (None Urine Glucose 4+ mg/dL (Normal) Test 04/20/24 09:39 04/20/24 08:10 04/20/24 07:51 04/20/24 03:57 Lactic Acid Level 1.6 mmol/L (0.4-2.0) Blood Gas Specimen Type Venous Blood Gas Sample Site Vbg - n/a Blood Gas Patient Temperature 37.0 Arterial Blood Date Drawn [id number] Kang Test N/a Venous Blood pH 7.218 (7.320-7.430) Venous Blood pCO2 at Patient Temp 26.4 mmHg (38.0-54.0) Venous Blood pO2 at Patient Temp < 36.5 mmHg (23.0-48.0) Venous Blood HCO3 10.5 mmol/L (22.0-29.0) Venous Blood Base Excess -15.5 mmol/L (-2.0-3.0) Blood Gas Modality Room air FiO2 % 21.0 Serum Osmolality 299 mOsm/kg (278-298) Beta-Hydroxybutyric Acid 3.465 mmol/L (< 0.4) Phosphorus Level 5.4 mg/dL (2.4-5.1) Test 04/20/24 03:52 Influenza Type A Antigen Negative (Negative) Influenza Type B Antigen Positive (Negative) SARS-CoV-2 Antigen (Rapid) Negative (NEGATIVE) Other Laboratory Tests 04/21/24 11:56 04/21/24 05:24 Brief Hx & Hospital Course: This is a 35 years old female with past medical history of diabetes, controlled by diet and exercise. Came to emergency department because of flu-like symptom. The patient said she was feeling that, cough and was sent home from work. The patient was found to be in DKA. The patient was put on insulin drip and subsequently switched to Lantus and sliding scale insulin. The patient was started on metformin at home. The patient also was found to have influenza B positive. The patient was started on Tamiflu. The patient does have Tamiflu at home when she went to urgent care. She had not finished the Tamiflu at home yet. And the medicine support for five days per patient. Today the patient doing better. Blood glucose control. I am going to discharge her home. Advised her to take metformin at home. Advised her to continuing 10 Tamiflu until finished. I will send her home with a Z-Heron and Medrol dose pack and to finish. Activity as tolerated. Diet per home diet. Physical exam: HEENT: Normocephalic atraumatic pupils equal react to light and accommodation. Extraocular muscles intact, conjunctiva pink, oropharynx moist, no thrush, no exudate. Lymphatic: No lymphadenopathy Cardiovascular exam: S1, S2 was heard. No murmurs, rubs, gallops Lung: Clear on auscultation bilaterally, no wheeze, rale, rhonchi. GI: Abdominal soft, nondistended, nontenderness, positive bowel sounds. Extremity: No crepitus, cyanosis, edema. Pedal pulses present bilateral. Full range of motion. Skin: Normal turgor, no rash. Psych: Alert, oriented x3. Neurology: No focal deficits, cranial nerve II to XII grossly intact. This medical document was created using an electronic medical record system with [employer] computerized dictation system. Although this document has been carefully reviewed, there may still be some phonetic and typographical errors. These areas are purely typographical due to imperfections of the software programs, and do not reflect any compromise in the patient's medical care. Condition at Discharge: Stable Final Diagnosis/Problems List Diabetic Keto Acidosis, Influenza B positive, Discharge Disposition: Home Discharge Instruct/Medications Diet: Regular Activity: No Restrictions, As Tolerated Follow Up/Referral: pcp 1-2 weeks Medications: see med list Discharge Statement: "Patient was advised to return to the ER or call 911 if any headaches, dizziness, shortness of breath, chest pain, abdominal pain, bleeding, fevers, or worsening of medical condition. Patient was counseled about treatment plan, medications, possible side effects, patientverbalized understanding. All questions were answered to the best of my ability. This discharge took greater then 30 minutes in planning, reviewing documentation, counseling the patient, and discussing with other team members." ASSESSMENT ASSESSMENT Assessment dka Date of Service: Apr 23, 2024 Billing Provider: IWONA HACKETT MD Common Visit Codes: [id number] DISCH DAY >30min IWONA HACKETT MD Apr 23, 2024 11:32
[2024-04-23 12:05] VITALS: BP 106/67; PULSE 89; RESP 18; TEMP 99.2; O2SAT 96
== END 2024-04-23 14:05 | disposition home or self-care (01) | DRG 420 ==
LOC: ER 03:30 → TELE 10:09 → TELE-EAST 04-21 13:08 → EAST 04-22 03:20
PROVIDERS: ADMIT Nurse Practitioner Family; ATTEND Internal Medicine
DX: E11.10 Type 2 diabetes mellitus with ketoacidosis without coma (principal); J10.1 Influenza due to other identified influenza virus with other respiratory manifestations; Z20.822 Contact with and (suspected) exposure to COVID-19; Z79.84 Long term (current) use of oral hypoglycemic drugs; Z79.4 Long term (current) use of insulin
CPT/HCPCS: 36415; 71045; 80048; 80053; 81001; 82010; 82962; 83036; 83605; 83735; 83930; 84100; 84132; 85025; 87426; 87804; 99291; G0378; J1815; J2405